=== PATIENT | female | born 1945 | race Caucasian/White ===

== ENCOUNTER → 2016-07-12 | Outpatient (CLI) | payer BC, MEDICARE ==
[~2016-07-12] MED LIST: ASPIRIN81 MG PO; BACTROBAN22 GM TOP; CELEBREX200 MG PO; HYDROCHLOROTHIA25 MG PO; MOTRIN800 MG PO; NORCO 325-5 MG1 TAB PO; OXYCODONE HCL5 MG PO; PROTONIX40 MG PO; SYNTHROID100 MCG PO; TRIAMCINOLONE A80 GM TOP; TYLENOL325 MG PO; ULTRAM50 MG PO
== END | disposition short-term general hospital (02) ==
LOC: CLORTH 09:24
DX: M17.0 Bilateral primary osteoarthritis of knee (principal); E66.9 Obesity, unspecified

== ENCOUNTER → 2016-07-14 | Outpatient (CLI) | payer BC, MEDICARE | END | disposition short-term general hospital (02) | LOC: CLPAIN 11:51 | DX: M47.816 Spondylosis without myelopathy or radiculopathy, lumbar region (principal); M48.06 Spinal stenosis, lumbar region ==

== ENCOUNTER → 2016-07-26 | Outpatient (CLI) | payer BC, MEDICARE | END | disposition short-term general hospital (02) | LOC: CLORTH 11:47 | DX: M17.11 Unilateral primary osteoarthritis, right knee (principal) ==

== ENCOUNTER 2016-08-09 06:28 | Inpatient (IN) | payer BC, MEDICARE ==
[~2016-08-09] VITALS: Ht 156.2 cm; Wt 120.2 kg
[~2016-08-09 06:28] MED LIST changes: -OXYCODONE HCL5 MG PO; -TYLENOL325 MG PO; -ULTRAM50 MG PO
[2016-08-11] MEDS ORDERED: ASPIRIN81 MG PO (09:16)
[2016-08-11] MEDS ORDERED: OXYCODONE HCL5 MG PO (09:23)
[2016-08-11] MEDS ORDERED: ULTRAM50 MG PO (09:25)
[2016-08-11] MEDS ORDERED: TYLENOL325 MG PO (09:27)
== END 2016-08-11 14:38 | disposition short-term general hospital (02) | DRG 470 ==
LOC: SURG 06:28 → IP 06:28
PROVIDERS: ADMIT Family Medicine
PROC: 0SRC0J9 Replacement of Right Knee Joint with Synthetic Substitute, Cemented, Open Approach (ICD-10-PCS; principal; 2016-08-09)
DX: M17.10 Unilateral primary osteoarthritis, unspecified knee (principal); I10 Essential (primary) hypertension; K21.9 Gastro-esophageal reflux disease without esophagitis; E03.9 Hypothyroidism, unspecified
CPT/HCPCS: A9150; C1776; J0171; J0330; J0690; J1100; J1885; J2250; J2270; J2405; J2765; J2795; J3010; J8499

== ENCOUNTER → 2016-08-23 | Outpatient (CLI) | payer BC, MEDICARE ==
[~2016-08-23] MED LIST changes: +OXYCODONE HCL5 MG PO; +TYLENOL325 MG PO; +ULTRAM50 MG PO
== END | disposition short-term general hospital (02) ==
LOC: CLORTH 04:54
DX: Z47.1 Aftercare following joint replacement surgery (principal); Z96.651 Presence of right artificial knee joint